=== PATIENT | female | born 1965 | race Caucasian/White ===

== ENCOUNTER 2016-08-22 05:17 | Emergency (ER) | payer BC ==
--- NOTE | ~2016-08-22 | ER ---
PATIENT'S NAME: MELI BARLOW [facility] AGE: 51 Y [address] ROOM: [place], [place] [address] LOCATION: [facility] ADMIT DATE: 08/22/2016 ER/Outpatient Report DISCHARGE DATE: 08/22/2016 FAMILY PHYSICIAN: Vadim Brand MD ATTENDING PHYSICIAN: Svetlana Boyd HISTORY OF PRESENT ILLNESS: This is a 51-year-old female, who presents today with chief complaint of palpitations. The patient says that she is visiting [place] for a wedding and got home approximately 4 hours ago from the wedding. She states she did not feel right then, but did not take her pulse and then she woke up about 15 minutes ago with rapid heart rate. She states that she also felt short of breath. She has a history of SVT, so she decided to come into the ER to get evaluated. Currently, she says she is not short of breath and she feels fine. She still feels some palpitations though. The patient denies having any chest pain ever. PAST MEDICAL HISTORY: Includes depression and SVT. PAST SURGICAL HISTORY: One kidney removed. SOCIAL HISTORY: She does not smoke or use any drugs, but she does drink alcohol and had alcohol tonight as well. REVIEW OF SYSTEMS: Reviewed by me and negative with the exception of those discussed in the HPI. PHYSICAL EXAMINATION: VITAL SIGNS: She is 5 feet 4 inches. She weighs 70.1 kilos, blood pressure 142/86, heart rate 87, respiratory rate 16, temperature 96.9, saturations are 97% on room air. GCS is 15. GENERAL: The patient is lying in stretcher and she does not appear toxic. She looks very well. She walked into the ER without any difficulty feeling. NEUROLOGIC: She is alert and oriented x4. GCS is 15. HEART: Heart rate currently is 87 beats per minute. No extra heart sounds. Pulses are strong. Cap refills less than 2 seconds. LUNGS: Her lung sounds are clear. No labored breathing, tachypnea or accessory muscle use. No chest wall tenderness. ABDOMEN: Soft, nontender, nondistended. EXTREMITIES: She moves all extremities. Gait within normal limits. No neuro focal deficits. SKIN: Warm, dry, intact. She is not cool, cyanotic or mottled. PATIENT'S NAME: MELI BARLOW [facility] AGE: 51 Y [address] ROOM: [place] [address] LOCATION: [facility] ADMIT DATE: 08/22/2016 ER/Outpatient Report DISCHARGE DATE: 08/22/2016 FAMILY PHYSICIAN: Vadim Brand MD ATTENDING PHYSICIAN: Svetlana Boyd EMERGENCY ROOM COURSE: We did an EKG, which on my read is sinus rhythm, heart rate of 76 beats per minute. There is no ectopy. There is no ST elevation or ST depression. She has no Q-waves. She has no prolonged QTc. Normal sinus rhythm. Discussed this with the patient. She takes metoprolol. I would not do anything else as her SVT has resolved. She feels well and she wants to go home. IMPRESSION: Supraventricular tachycardia, resolved. MD KEERTHI JACOBS/humberto /[id number] d: 08/22/16 0602 t: 08/23/16 0028, OUTPATIENT REPORT
== END 2016-08-22 05:39 | disposition disaster alternative care site (69) ==
LOC: GMED 05:17
DX: I47.1 Supraventricular tachycardia (principal); F32.9 Major depressive disorder, single episode, unspecified